=== PATIENT | male | born 1965 | race Caucasian/White ===

== ENCOUNTER 2023-11-09 18:19 | Emergency (ER) | payer OTHER, SELFPAY ==
[2023-11-09 18:23] VITALS: BP 150/89; PULSE 78; TEMP 36.6; O2SAT 98; BMI 27.5
--- NOTE | 2023-11-09 18:26 | CT_ITS ---
The [address] [address] Patient Name: DWIGHT TUTTLE MRN: [id number] date: 1965 Sex: M Assigned Patient Location: ER Current Patient Location: ER Accession/Order Number: [id number] Exam Date: 11/09/2023 18:30 Report Date: 11/09/2023 18:50 At the request of: LILY DAVIDSON Procedure: CT head/brain wo con EXAM: CT head/brain wo con HISTORY: Blunt and penetrating trauma above the left orbit head work. COMPARISON: None. TECHNIQUE: Multiple thin computed tomograms of the head were obtained, with sagittal and coronal reconstructions. Radiation reduction technique and elbows are utilized during the study. FINDINGS: The ventricles are not enlarged, the lateral ventricles are symmetric and the third ventricles in the midline. The sylvian fissures and cortical sulci are unremarkable. There is no evidence of an intracranial hemorrhage, mass lesion or apparent acute infarct. Fluid in the posterior aspect of the posterior fossa is probably due to one or more arachnoid cyst. The cerebellum and visualized brainstem are otherwise intact. Fractures are seen involving the left side of the face extending into the left frontal sinus, with an air-fluid level in the left maxillary sinus and opacification of most of the left frontal sinus. Significant soft tissue swelling and air in the soft tissues anterior to the orbit is noted, and there appear to be fractures involving the anterolateral wall of the maxillary sinus. A small air-fluid level is seen in the sphenoid sinus. The middle ears are aerated. The mastoid sinuses are clear. Prominent soft tissue swelling is seen around the left orbit and forehead, with evidence of laceration and hematoma in the soft tissues. CT/CT head/brain wo con IMPRESSION: There is no evidence of an intracranial hemorrhage, mass lesion or apparent acute infarct. Multiple fractures are seen involving the facial bones on the left side, with fluid collections involving the left maxillary, left frontal and the sphenoid sinus. See the report from the CT scan of the facial bones for additional detail. There is no other evidence of a skull fracture. Prominent soft tissue swelling with evidence of superficial laceration are noted along the left side of the face. Electronically authenticated by: LORIE ZUNIGA Date: 11/09/2023 18:50
--- NOTE | 2023-11-09 18:30 | CT_ITS ---
The [address] [address] Patient Name: DWIGHT TUTTLE MRN: [id number] date: 1965 Sex: M Assigned Patient Location: ER Current Patient Location: ED.MAIN Accession/Order Number: [id number] Exam Date: 11/09/2023 18:30 Report Date: 11/09/2023 19:39 At the request of: JERAMIE BERMUDEZ Procedure: CT facial bones wo con CT MAXILLOFACIAL WITHOUT CONTRAST. CLINICAL HISTORY: injury COMPARISON: None. TECHNIQUE: Multidetector maxillofacial CT without contrast. Coronal and sagittal reformatted images were obtained. FINDINGS: OSSEOUS STRUCTURES: There is a mildly displaced fracture of the outer and inner table of the left frontal sinus. There is an acute nondisplaced fracture of the superior wall of the left orbit. There is an acute nondisplaced fracture of the anterior wall of the left maxillary sinus. ORBITS: Normal orbits. No inflammation or fluid collection. ORAL CAVITY: No inflammation or fluid collection. No periapical lucency. SOFT TISSUES: There is left periorbital emphysema.. VISUALIZED INTRACRANIAL CONTENTS: Refer to CT head report. MASTOID AIR CELLS: Clear. PARANASAL SINUSES: There is a left maxillary sinus mucous retention cyst. There are small amount of blood products in the maxillary sinuses.. CT/CT facial bones wo con IMPRESSION: 1. Acute mildly displaced fractures of the outer and inner table of the left frontal sinus and superior wall of the left orbit. No evidence of globe injury. Left periorbital emphysema. 2. Acute nondisplaced fracture of the anterior wall of the left maxillary sinus. Electronically authenticated by: NATALIE MUNGUIA Date: 11/09/2023 19:39
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
[2023-11-09] MEDS: 0.9 % SODIUM CHLORIDE 1,000 ML 1000 ML IV (19:04)
[2023-11-09] MEDS: CEFAZOLIN SODIUM/DEXTROSE,ISO 1 GM/50 ML IV.SOLN IV (19:06)
[2023-11-09] MEDS: ADACEL DIPH,PERTUSS(ACELL),TET VAC/PF 0.5 ML ADULT SYRINGE IM (19:07)
[2023-11-09 19:11] VITALS: BP 133/87; PULSE 72; O2SAT 99
[2023-11-09 19:20] LABS: Basophils Percent Auto 0.3 % (0.2-2.0); Eosinophils Absolute Auto 0.2 10^3/uL (0.0-0.7); Eosinophils Percent Auto 1.6 % (0.9-7.0); Hematocrit 46.7 % (42.0-54.0); Hemoglobin 15.9 g/dL (14.0-18.0); Immature Granulocytes Abs Auto 0.03 10^3/uL (0.00-0.03); Immature Granulocytes Pct Auto 0.3 % (0.0-0.5); Lymphocytes Absolute Auto 2.1 10^3/uL (1.2-3.8); Lymphocytes Percent Auto 17.9 % (20.5-60.0); Mean Platelet Volume 10.5 fL (9.5-13.5); Monocytes Absolute Auto 0.8 10^3/uL (0.3-0.8); Monocytes Percent Auto 6.5 % (1.7-12.0); Neutrophils Absolute Auto 8.5 10^3/uL (1.4-6.5); Neutrophils Percent Auto 73.4 % (43.0-75.0); Platelet Count 185 10^3/uL (150-450); Red Blood Count 5.13 10^6/uL (4.70-6.10); White Blood Count 11.6 10^3/uL (4.0-11.0)
[2023-11-09 19:39] LABS: Anion Gap 12.7; BUN Creatinine Ratio 16.3; Calcium 8.9 mg/dL (8.5-10.1); Carbon Dioxide 26.9 mmol/L (21.0-32.0); Chloride 102 mmol/L (98-107); Estimated GFR (African America >60 (>=60); Estimated GFR (Non-African Ame >60 (>=60); Glucose 110 mg/dL (74-106); Potassium 3.6 mmol/L (3.5-5.1); Sodium 138 mmol/L (136-145)
[2023-11-09 19:43] LABS: INR 0.99; Prothrombin Time 10.5 sec (9.0-11.6)
[2023-11-09 21:08] VITALS: BP 150/86; PULSE 77; O2SAT 98
--- NOTE | 2023-11-09 22:08 | PC.NURSE ---
Neuros remain unchanged and intact at this time
== END 2023-11-09 22:38 | disposition short-term general hospital (02) ==
PROVIDERS: Emergency Medicine Emergency Medical Services; Emergency Provider Internal Medicine; PCP Internal Medicine
DX: S02.19XB Other fracture of base of skull, initial encounter for open fracture (principal); S02.85XA Fracture of orbit, unspecified, initial encounter for closed fracture; S02.40DB Maxillary fracture, left side, initial encounter for open fracture; S09.8XXA Other specified injuries of head, initial encounter; W22.8XXA Striking against or struck by other objects, initial encounter; Z23 Encounter for immunization
CPT/HCPCS: 36415; 70450; 70486; 80048; 85025; 85610; 90471; 90715; 96365; 99285